=== PATIENT | female | born 1945 | race Caucasian/White ===

== ENCOUNTER 2020-06-11 10:03 | Outpatient (REF) | payer MEDICARE, SELFPAY ==
--- NOTE | 2020-06-11 10:12 | MM_ITS ---
EXAMINATION: MM SCREENING DIGITAL MAMMOGRAPHY, BILATERAL CLINICAL INFORMATION: Screening. Asymptomatic. The lifetime risk of breast cancer based on the Tyrer-Cuzick Model is under 2%. COMPARISON: Mammography: 06/03/2019, 05/12/2018 TECHNIQUE: Digital mammography is performed in craniocaudal and mediolateral oblique views along with computer-aided detection (CAD). FINDINGS: There are scattered areas of fibroglandular density (ACR BI-RADS breast composition Category b). There are no significant masses, abnormal calcifications, or other abnormalities. Parenchymal pattern is similar to prior exams. There are scattered bilateral round, rim, and dermal calcifications again seen in each breast. IMPRESSION: No significant changes from prior studies. ASSESSMENT: BI-RADS 2: Benign RECOMMENDATION: Routine annual mammography screening. This patient's information was entered into a reminder system with a target due date for their next mammogram.
== END 2020-06-11 10:04 | disposition home or self-care (01) ==
LOC: HO.MAMMO 10:03
PROVIDERS: PCP Family Medicine; Visit Provider Family Medicine
DX: Z12.31 Encounter for screening mammogram for malignant neoplasm of breast (principal)
CPT/HCPCS: 77067

== ENCOUNTER 2021-06-21 10:14 | Outpatient (REF) | payer MEDICARE, SELFPAY ==
--- NOTE | ~2021-06-21 | MM_ITS ---
EXAMINATION: BONE DENSITOMETRY CLINICAL INDICATION: Osteoporosis. COMPARISON: Baseline BD dated 01/07/2013. TECHNIQUE: Using a [employer] DXA System (software version: 13.1) manufactured by [employer], dual-energy x-ray absorptiometry was performed of the spine and left hip. The images are of good technical quality. Summary results are attached. FINDINGS: AP SPINE L1-L4: Current: BMD 1.492 g/cm2, Z-score 3.2, T-score 2.6, normal, 2.3% increase from baseline (<5% change is not significant). Baseline: BMD 1.459 g/cm2. LEFT FEMUR, NECK: Current: BMD 0.682 g/cm2, Z-score -1.4, T-score -2.6, osteoporosis. Baseline: BMD 0.934 g/cm2. LEFT FEMUR, TOTAL: Current: BMD 0.745 g/cm2, Z-score -1.2, T-score -2.1, osteopenia, 25.6% decrease from baseline (<5% change is not significant). Baseline: BMD 1.002 g/cm2. IDENTIFIED RISK FACTORS: Menopause, family history (parental hip fracture). HISTORY OF FRACTURE: None listed. MEDICATIONS: Vitamin D. MM/XR DEXA axial skeleton IMPRESSION: 1. DIAGNOSIS: Osteoporosis based on the lowest T-score value of -2.6 in the femoral neck applying World Health Organization criteria. 2. 10-YEAR FRACTURE RISK PREDICTION, FRAX: Major osteoporotic fracture (clinical spine, forearm, hip or shoulder) 25.6%. Hip fracture 15.5%. 3. Treatment Recommendations: NOF guidelines recommend consideration for treatment in postmenopausal women and men age 50 and older presenting with the following: -A hip or vertebral (clinical or morphometric) fracture. -T-score less than or equal to -2.5 at the femoral neck or spine after appropriate evaluation to exclude secondary causes. -Low bone mass at the hip or spine and a 10-year fracture probability by FRAX of greater than or equal to 3% for hip fracture or greater than or equal to 20% for major osteoporotic fracture based on the [place] adapted WHO algorithm. 4. Other Recommendations: All treatment decisions require clinical judgment and consideration of individual patient factors, including patient preferences, comorbidities, previous drug use, risk factors not captured in the FRAX model (e.g. frailty, falls, vitamin D deficiency, increased bone turnover, interval significant decline in bone density) and possible under or overestimation of fracture risk by FRAX. Additional medical evaluation for secondary cause of low bone mineral density may be appropriate. FUTURE SCAN RECOMMENDATION: People with diagnosed cases of osteoporosis or at high risk for fracture should have regular bone mineral density tests. For patients eligible for Medicare, routine testing is allowed once every 2 years. The testing frequency can be increased to one year for patients who have rapidly progressing disease, those who are receiving or discontinuing medical therapy to restore bone mass, or have additional risk factors.
--- NOTE | ~2021-06-21 | MM_ITS ---
EXAMINATION: MM SCREENING DIGITAL BREAST TOMOSYNTHESIS, BILATERAL CLINICAL INFORMATION: Screening. Asymptomatic. The lifetime risk of breast cancer based on the Tyrer-Cuzick Model is 3%. COMPARISON: Mammography: 06/11/2020, 06/03/2019, 05/12/2018 TECHNIQUE: Digital breast tomosynthesis is performed in both the craniocaudal and mediolateral oblique views along with computer-aided detection (CAD). Synthesized 2D images are generated from the tomosynthesis. Additional bilateral MLO views are provided. FINDINGS: There are scattered areas of fibroglandular density (ACR BI-RADS breast composition Category b). There are no significant masses, abnormal calcifications, or other abnormalities. There are scattered bilateral round, rim, and dermal calcifications again noted. No significant changes. MM/MM tomosynthesis screening BI IMPRESSION: No mammographic evidence of malignancy. ASSESSMENT: BI-RADS 2: Benign RECOMMENDATION: Routine annual mammography screening. This patient's information was entered into a reminder system with a target due date for their next mammogram.
== END 2021-06-21 10:15 | disposition home or self-care (01) ==
LOC: HO.MAMMO 10:14
PROVIDERS: Visit Provider Family Medicine
DX: Z12.31 Encounter for screening mammogram for malignant neoplasm of breast (principal); Z13.820 Encounter for screening for osteoporosis; Z78.0 Asymptomatic menopausal state
CPT/HCPCS: 77063; 77067; 77080

== ENCOUNTER 2022-06-24 10:59 | Outpatient (REF) | payer MEDICARE, SELFPAY ==
--- NOTE | ~2022-06-24 | MM_ITS ---
EXAMINATION: MM SCREENING DIGITAL BREAST TOMOSYNTHESIS, BILATERAL CLINICAL INFORMATION: Screening. Asymptomatic. The lifetime risk of breast cancer based on the Tyrer-Cuzick Model is 3%. COMPARISON: Mammography: 06/21/2021, 06/11/2020, 06/03/2019 TECHNIQUE: Digital breast tomosynthesis is performed in both the craniocaudal and mediolateral oblique views along with computer-aided detection (CAD). Synthesized 2D images are generated from the tomosynthesis. FINDINGS: There are scattered areas of fibroglandular density (ACR BI-RADS breast composition Category b). Parenchymal pattern is similar to prior studies. There is fibronodular pattern in the anterior breasts similar to previous exams. No developing density or interval mass or architectural abnormality. Again, there are scattered bilateral benign round and rim and dermal calcifications. The axilla are unremarkable. MM/MM tomosynthesis screening BI IMPRESSION: No mammographic evidence of malignancy. ASSESSMENT: BI-RADS 2: Benign RECOMMENDATION: Routine annual mammography screening. This patient's information was entered into a reminder system with a target due date for their next mammogram.
== END 2022-06-24 11:00 | disposition home or self-care (01) ==
LOC: HO.MAMMO 10:59
PROVIDERS: Visit Provider Family Medicine
DX: Z12.31 Encounter for screening mammogram for malignant neoplasm of breast (principal)
CPT/HCPCS: 77063; 77067

== ENCOUNTER 2023-07-10 08:13 | Outpatient (REF) | payer MEDICARE, SELFPAY | END 2023-07-10 08:14 | disposition home or self-care (01) | LOC: HO.MAMMO 08:13 | PROVIDERS: PCP Family Medicine; Visit Provider Family Medicine | DX: Z12.31 Encounter for screening mammogram for malignant neoplasm of breast (principal) | CPT/HCPCS: 77063; 77067 ==

== ENCOUNTER → 2023-07-10 08:45 | Outpatient (BNV) | payer MEDICARE, SELFPAY | PROVIDERS: PCP Family Medicine; Visit Provider Radiology Diagnostic Radiology | DX: Z12.31 Encounter for screening mammogram for malignant neoplasm of breast (principal) | CPT/HCPCS: 77063; 77067 ==

== ENCOUNTER 2025-09-06 12:35 | Outpatient (REF) | payer MEDICARE, SELFPAY ==
--- NOTE | ~2025-09-06 | MM_ITS ---
EXAMINATION: DXA BONE DENSITY AXIAL HISTORY: OSTEOPOROSIS TECHNIQUE: [employer] Dual energy absorptiometry (DEXA) of the lumbar spine, total left hip, and femoral neck was performed. COMPARISON: Comparison is made with the prior examination dated 06/21/2021. FINDINGS: The bone mineral density of the lumbar spine is 1.562 g/cm2, corresponding to a T-score of 3.2, and a Z-score of 3.8. This is indicative of normal bone mineral density. This represents a BMD change of 4.7% compared to the prior exam. This is statistically significant. The bone mineral density of the left total hip is 0.781 g/cm2, corresponding to a T-score of -1.8, and a Z-score of -0.7. This is indicative of osteopenia. This represents a BMD change of 4.8% compared to the prior exam. This is statistically significant. The bone mineral density of the left femoral neck is 0.756 g/cm2, corresponding to a T-score of -2.0, and a Z-score of -0.7. This is indicative of osteopenia. This represents a BMD change of 10.9% compared to the prior exam. FRACTURE RISK: The FRAX index suggests a ten year probability of major osteoporotic fracture of 23.3%, and of hip fracture 13.9%. MM/XR DEXA axial skeleton IMPRESSION: Based on bone mineral density, and according to World Health Organization (WHO) criteria, the diagnosis is consistent with osteopenia. Statistically, 68% of repeat scans fall within 1 SD (+/- 0.010 g/cm2 for AP spine L1-L4) and 1 SD (+/- 0.012 g/cm2 for femur total) FRAX is a trademark of the [employer] Met[employer], a World Health Organization (WHO) Collaborating Center. Electronically signed by: Victorino Villafuerte MD 09/06/2025 01:28 PM [facility]
--- OUTSIDE RECORDS SUMMARY | 2025-09-06 14:11 | XMS_ITS | Encounter Summary ---
Author Organization [facility] Address [address] [place] [address] [place] [address] Phone Care Team Providers Care Tissue Specialist Name Role Phone Abeba Ames MD Primary Care Provider Dilcia Patricia MD Unavailable Shantel Christensen RN Unavailable [phone] Reason for Referral * Consultation (Elective) - Closed Specialty Diagnoses / Procedures Referred By Contac t Referred To Contact Diagnoses Atrial fibrillation, unspecified type Abeba Ames MD [address] [place] [address] Phone: tel: fax: [email or web address] [address] [place] [address] Phone: tel: Referral ID Status Reason Start Date Expiration Date Visits Re quested Visits Authorized [id number] Closed 10/23/2022 10/23/2023 1 1 Encounter Details Date Type Department Care Team (Late st Contact Info) Description 10/23/[address] [facility] Department [address] [place] [address] Abeba mAes MD [address] [place], [place] [phone] [email or web address] Atrial fibrillation, unspecified type (Primary Dx) Social History Tobacco Use Types Packs/Day Years Used Date Smoking Tobacco: Never Smokeless Tobacco: Never Alcohol Use Standard Drinks/Week Comments Never 0 (1 standard drink = 0.6 oz pur e alcohol) occasinal its been a while Comments No Sex and Gender Information Value Date Recorded Sex Assigned at Not on file Legal Sex Female 10:07 PM EDT Gender Identity Not on file Sexual Orientation Not on file documented as of this encounter Plan of Treatment Upcoming Encounters Date Type Department Care Team (Late st Contact Info) Description 09/19/2025 10:00 AM EST Nurse Only [facility] [address] [place] [address] Abeba Ames MD [address] [place] [address] documented as of this encounter Procedures Procedure Name Priority Date/Time Associated Diagnosis Comments AMB REFERRAL TO [facility]TICO[facility]ULATION [facility] Routine 11/24/2022 8:52 AM EDT Atrial fibrillation, unspecified type documented in this encounter Results * Ambulatory referral to [facility] Anticoagulation [facility] (11/24/2022 8:52 AM EDT) Other Abeba Ames MD AMB [facility] REFERRALS Final Result documented in this encounter Visit Diagnoses Diagnosis Atrial fibrillation, unspecified type- Primary documented in this encounter Care Teams Tissue Specialist Relationship Specialty Start Date End Date Abeba Ames MD [address] [place] [address] PCP - General Family Medicine 07/23/17 Dilcia Patricia MD [address] [place] [address] Cardiology 09/15/23 Shantel Christensen RN [address] [place] [address] Registered Nurse 07/11/25 documented as of this encounter Additional Source Comments The information contained in this document represents components of the legal health record. It is not the complete legal health record.[facility]
--- OUTSIDE RECORDS SUMMARY | 2025-09-06 14:11 | XMS_ITS | Clinical Summary ---
Author Organization [facility] Address [address] [place] [address] Phone Care Team Providers Care Dairy Science Teacher Name Role Phone Abeba Ames MD Primary Care Provider Dilcia Patricia MD Unavailable [phone] Shantel Christensen RN Unavailable [phone] Allergies No known active allergies Medications levothyroxine (SYNTHROID, LEVOTHROID) 75 MCG tablet Take 75 mcg by mouth every morning. Active b complex vitamins capsule Take 1 capsule by mouth daily. Active acetaminophen (TYLENOL) 500 MG tablet Take 500 mg by mouth every 6 (six) hours as needed for pain (specific location in comments). Active cholecalciferol (VITAMIN D3) 4,000 unit tablet Take 1,000 Units by mouth daily. Active alendronate (FOSAMAX) 70 MG tablet Take 70 mg by mouth every 7 days. Take in the morning with a full glass of water, on an empty stomach, and do not take anything else by mouth or lie down for the next 30 min. Active sotaloL (BETAPACE) 80 MG tablet Take 80 mg by mouth 2 (two) times a day. Active warfarin (COUMADIN) 5 MG tablet Take 5 mg by mouth daily. Take 5mg daily Active Active Problems Problem Noted Date Diagnosed Date emt intermediate (current) use of anticoagulants 2024 Atrial fibrillation [I48.91] 07/04/2017 Chronic anticoagulation 07/04/2017 Encounters Date Type Department Care Team Description 08/15/2025 8:20 AM EST Nurse Only [facility] [address] [place] [address] Abeba Ames MD Atrial fibrillation [I48.91] (Primary Dx); Chronic anticoagulation; emt intermediate (current) use of anticoagulants 07/11/2025 8:20 AM EST Office Visit [facility] [address] [place] [address] Abeba Ames MD Atrial fibrillation [I48.91] (Primary Dx); Chronic anticoagulation 06/27/2025 8:00 AM EDT Office Visit [facility] [address] [place] [address] Abeba Ames MD Atrial fibrillation [I48.91] (Primary Dx); Chronic anticoagulation from Last 3 Months Social History Tobacco Use Types Packs/Day Years Used Date Smoking Tobacco: Never Smokeless Tobacco: Never Alcohol Use Standard Drinks/Week Comments Never 0 (1 standard drink = 0.6 oz pur e alcohol) occasinal its been a while Education Answer Date Recorded Are you interested in more education? Not on britton e 01/02/2023 Are you concerned about learning? Not on file 01/02/2023 No 01/02/2023 No 01/02/2023 Digital Access Answer Date Recorded No 01/31/2023 No 01/31/2023 No 01/31/2023 Reliable internet access at home? Not on file 01/31/2023 Device with a working camera? Not on file Comments No Sex and Gender Information Value Date Recorded Sex Assigned at Not on file Legal Sex Female 10:07 PM EDT Gender Identity Not on file Sexual Orientation Not on file Last Filed Vital Signs Vital Sign Reading Time Taken Comments Blood Pressure 113/60 02/21/2021 10:15 AM EDT Pulse 70 02/21/2021 10:10 AM EDT Temperature 36.2 C (97.2 F) 02/21/2021 8:00 AM EDT Respiratory Rate 21 02/21/2021 10:10 AM EDT Oxygen Saturation 97% 02/21/2021 10:15 AM EDT Inhaled Oxygen Concentration - - Weight 113.4 kg (250 lb) 02/21/2021 8:00 AM EDT Height 157.5 cm (5' 2 ) 02/21/2021 8:00 AM EDT Body Mass Index 45.73 02/21/2021 8:00 AM EDT Plan of Treatment Upcoming Encounters Date Type Department Care Team (Late st Contact Info) Description 09/19/2025 10:00 AM EST Nurse Only [facility] [address] [place] [address] Abeba Ames MD [address] [place] [address] [email or web address] Health Maintenance Due Date Last Done Comments LIPID PANEL 1946 TSH LEVEL 1946 DEPRESSION SCREENING 1958 HEPATITIS C SCREENING 1964 ZOSTER VACCINES (2 of 3) 02/20/2011 12/26/2010 OSTEOPOROSIS SCREENING INITIAL (ONE-TIME) 11/20/2011 RSV VACCINE (1 - 1-dose 75+ series) 2021 INFLUENZA VACCINE (#1) 2025 2, 06/19/2021, 06/25/2020, Additional history exists COVID-19 VACCINE (2024- season) 2025 Adult Td,Tdap Booster 06/25/2030 06/25/2020, 010 PNEUMOCOCCAL VACCINES (50+ years) Completed 11/06/2014, 02/23/2012 SMOKING STATUS SCREENING (Once After 26 Yrs) Completed 02/21/2021 HEPATITIS A VACCINES Aged Out No long er eligible based on patient's age to complete this topic HIB VACCINES Aged Out No longer eligi ble based on patient's age to complete this topic MENINGOCOCCAL VACCINES (ACWY) Aged Out No longer eligible based on patient's age to complete this topic MENINGOCOCCAL VACCINES (B) Aged Out N o longer eligible based on patient's age to complete this topic Medical Devices Not on file Procedures Procedure Name Priority Date/Time Associated Diagnosis Comments POCT INR Routine 08/15/2025 8:24 AM EST POCT PT/INR Routine 07/11/2025 8:23 AM EST Atrial fibrillation [I48.91] Chronic anticoagulation POCT INR Routine 07/11/2025 8:22 AM EST POCT INR Routine 06/27/2025 8:00 AM EDT from Last 3 Months Results * (ABNORMAL) POCT INR (08/15/2025 8:24 AM EST) Only the most recent of2 resultswithin the time period is included. INR 2.5(H) 0.9 - 1.1 08/15/2025 8:26 AM EST [facility] Blood (Blood) 08/15/2025 8:2 4 AM EST 08/15/2025 8:26 AM EST Abeba Ames MD LAB POCT DOCKED DEVICE UNSOLICTED RESULTS Final Result [address] [address] * POCT PT/INR (Enter/Edit) (07/11/2025 8:23 AM EST) POC PT-INR 2.9 07/11/2025 8:23 AM EST Amelia Cardoso [facility] LAB POCT ENTER/EDIT O RDERABLES Final Result * (ABNORMAL) Poct INR (06/27/2025 8:00 AM EDT) INR 3.4(H) 0.86 - 1.17 [facility] Comment:Therapeutic Range 2. 0-3.5 06/27/2025 8:00 AM EDT 06/27/2025 8:02 AM EDT Abeba Ames MD POINT OF CARE TEST ORDE RABLES Final Result Performing Organization Address City/[facility]/ZIP Co de Phone Number [facility] [address] [place] [address] from Last 3 Months Insurance [facility] MEDIC[facility] HMO BLUE REPLACEMENT MEDICARE PART A & B [facility] MEDIC[facility] HMO BLUE REPLACEMENT MEDICARE PART A & [place] [address] [place] [address] MEDICARE HMO BLUE REPLACEMENT [facility] MEDICARE HMO BLUE REPLACEMENT [facility] MEDIC[facility] HMO BLUE REPLACEMENT MEDICARE PART A & B [facility] MEDICARE O BLUE REPLACEMENT [facility] MEDICARE HMO BLUE REPLACEMENT MEDICARE PART A & B [place]UE RE[place]AC[place] MEDICARE PART A & B [facility] MEDICARE HMO BLUE REPLACEMENT MEDICARE PART A & B Care Teams Dairy Science Teacher Relationship Specialty Start Date End Date Abeba Ames MD [address] [place] [address] [email or web address] PCP - General Family Medicine 07/23/17 Dilcia Patricia MD [address] [place] [address] Cardiology 09/15/23 Shantel Christensen, RN [address] [place] [address] Registered Nurse 07/11/25 Additional Source Comments The information contained in this document represents components of the legal health record. It is not the complete legal health record.[facility]
--- OUTSIDE RECORDS SUMMARY | 2025-09-06 14:11 | XMS_ITS | Encounter Summary ---
Author Organization [facility] Address [address] [place] [address] [place] [address] Phone Care Team Providers Care Fluxer Name Role Phone Abeba Ames MD Primary Care Provider Dilcia Patricia MD Unavailable [phone] Shantel Christensen RN Unavailable [phone] Reason for Referral * Consultation (Routine) - Closed Specialty Diagnoses / Procedures Referred By Contac t Referred To Contact Diagnoses Atrial fibrillation Abeba Ames MD [address] [place] [address] Phone: tel: fax: [email or web address] [address] Phone: tel: Referral ID Status Reason Start Date Expiration Date Visits Re quested Visits Authorized [id number] Closed 11/21/2021 11/21/2022 1 1 Encounter Details Date Type Department Care Team (Latest Contact Info) Description 11/21/2021 Transcribe Orders [facility] [address] [place] [address] Shantel Christensen, RN [address] [place] [address] [email or web address] Atrial fibrillation (Primary Dx) Social History Tobacco Use Types [...] Description 09/19/2025 10:00 AM EST Nurse Only [facility] [address] [place] [address] Abeba Ames MD [address] [place] [address] documented as of this encounter Procedures Procedure Name Priority Date/Time Associated Diagnosis Comments AMB REFERRAL TO [facility] Routine 12/12/2021 10:21 AM EDT Atrial fibrillation documented in this encounter Results * Ambulatory referral to [facility] (12/12/2021 10:21 AM EDT) Other Abeba Ames MD AMB [facility] REFERRALS Final Result documented in this encounter Visit Diagnoses Diagnosis Atrial fibrillation- Primary documented in this encounter Care Teams Fluxer Relationship Specialty Start Date End Date Abeba Ames MD [address] [place] [address] PCP - General Family Medicine 07/23/17 Dilcia Patricia MD [address] [place] [address] Cardiology 09/15/23 Shantel Christensen RN [address] [place] [address] Registered Nurse 07/11/25 documented as of this encounter Additional Source Comments The information contained in this document represents components of the legal health record. It is not the complete legal health record.[facility]
--- OUTSIDE RECORDS SUMMARY | 2025-09-06 14:11 | XMS_ITS | Encounter Summary ---
Author Organization [facility] Address [address] [place] [address] [place] [address] Phone Care Team Providers Care Instructor Substitute Cosmetology Name Role Phone Abeba Ames MD Primary Care Provider Dilcia Patricia MD Unavailable [phone] Shantel Christensen RN Unavailable [phone] Reason for Referral * Consultation (Elective) - Closed Specialty Diagnoses / Procedures Referred By Contac t Referred To Contact Diagnoses Atrial fibrillation, unspecified type Abeba Ames MD [address] [place] [address] Phone: tel: fax: mailto:[email or web address] [address] [place] [address] Phone: tel: Referral ID Status Reason Start Date Expiration Date Visits Re quested Visits Authorized [id number] Closed 11/08/2020 11/08/2021 1 1 Encounter Details Date Type Department Care Team (Late st Contact Info) Description 11/08/2020 Transcribe Orders [address] [address] Abeba Ames MD [address] [place], [place] [id number] [email or web address] Atrial fibrillation, unspecified type (Primary Dx) Social History Tobacco Use Types Packs/Day Years Used Date Smoking Tobacco: Never Smokeless Tobacco: Never Alcohol Use Standard Drinks/Week Comments Yes 2 (1 standard drink = 0.6 oz pur e alcohol) monthly Comments Unknown Sex and Gender Information Value Date Recorded Sex Assigned at Not on file Legal Sex Female 10:07 PM EDT Gender Identity Not on file Sexual Orientation Not on file documented as of this encounter Plan of Treatment Upcoming Encounters Date Type Department Care Team (Late st Contact Info) Description 09/19/2025 10:00 AM EST Nurse Only [facility] [address] [place] [address] Abeba Ames MD [address] [place] [address] Scheduled Referrals Name Type Priority Associated Diagnoses Order Schedule Ambulatory referral to [facility] Outpatient Referral Routine Atrial fibrillation, unspecified type Ordered: 11/08/2020 documented as of this encounter Visit Diagnoses Diagnosis Atrial fibrillation, unspecified type- Primary documented in this encounter Care Teams Instructor Substitute Cosmetology Relationship Specialty Start Date End Date Abeba Ames MD [address] [place] [address] PCP - General Family Medicine 07/23/17 Dilcia Patricia MD [address] [place] [address] Cardiology 09/15/23 Shantel Christensen RN [address] [place] [address] Registered Nurse 07/11/25 documented as of this encounter Additional Source Comments The information contained in this document represents components of the legal health record. It is not the complete legal health record.[facility]
--- OUTSIDE RECORDS SUMMARY | 2025-09-06 14:11 | XMS_ITS | Encounter Summary ---
Author Organization [facility] Address [address] [place] [address] [place] [address] Phone Care Team Providers Care Employee Benefits Administrator Name Role Phone Abeba Ames MD Primary Care Provider Dilcia Patricia MD Unavailable [phone] Shantel Christensen RN Unavailable [phone] Reason for Referral * Consultation (Routine) - Closed Specialty Diagnoses / Procedures Referred By Contac t Referred To Contact Diagnoses Atrial fibrillation, unspecified type Abeba Ames MD Phone: tel: fax: mailto:[email or web address] [address] [address] Phone: tel: Referral ID Status Reason Start Date Expiration Date Visits Re quested Visits Authorized [id number] Closed 11/17/2017 11/17/2018 1 1 Encounter Details Date Type Department Care Team (Late st Contact Info) Description 11/17/2017 Transcribe Orders [facility] Department [address] [place] [address] Abeba Ames MD [address] [place] [address] [email or web address] Atrial fibrillation, unspecified type (Primary Dx) Social History Tobacco Use Types Packs/Day Years Used Date Smoking Tobacco: Never Assessed Comments Unknown Sex and Gender Information Value Date Recorded Sex Assigned at Not on file Legal Sex Female 10:07 PM EDT Gender Identity Not on file Sexual Orientation Not on file documented as of this encounter Plan of Treatment Upcoming Encounters Date Type Department Care Team (Late st Contact Info) Description 09/19/2025 10:00 AM EST Nurse Only [facility] [address] [place] [address] Abeba Ames MD [address] [place] [address] documented as of this encounter Procedures Procedure Name Priority Date/Time Associated Diagnosis Comments AMB REFERRAL TO [facility] Routine 12/09/2017 9:27 AM EDT Atrial fibrillation, unspecified type documented in this encounter Results * Ambulatory referral to [facility] (12/09/2017 9:27 AM EDT) Abeba Ames MD AMB [facility] REFERRALS Final Result documented in this encounter Visit Diagnoses Diagnosis Atrial fibrillation, unspecified type- Primary documented in this encounter Care Teams Employee Benefits Administrator Relationship Specialty Start Date End Date Abeba Ames MD [address] [place] [address] PCP - General Family Medicine 07/23/17 Dilcia Patricia MD [address] [place] [address] Cardiology 09/15/23 Shantel Christensen, RN [address] [place] [address] Registered Nurse 07/11/25 documented as of this encounter Additional Source Comments The information contained in this document represents components of the legal health record. It is not the complete legal health record.[facility]
--- OUTSIDE RECORDS SUMMARY | 2025-09-06 14:11 | XMS_ITS | Encounter Summary ---
Author Organization [facility] Address [address] [place] [address] [place] [address] Phone Care Team Providers Care Tank Erector Name Role Phone Abeba Ames MD Primary Care Provider Dilcia Patricia MD Unavailable [phone] Shantel Christensen RN Unavailable [phone] Reason for Referral * Consultation (Routine) - Closed Specialty Diagnoses / Procedures Referred By Contac t Referred To Contact Diagnoses Atrial fibrillation, unspecified type Abeba Ames MD Phone: tel: fax: [email or web address] [address] [address] Phone: tel: Referral ID Status Reason Start Date Expiration Date Visits Re quested Visits Authorized [id number] Closed 03/03/2018 03/03/2019 1 1 Encounter Details Date Type Department Care Team (Late st Contact Info) Description 03/03/2018 Transcribe Orders [facility] Department [address] [place] [id number] Abeba Ames MD [address] [place] [address] [email or web address] Atrial fibrillation, unspecified type (Primary Dx) [...] Description 09/19/2025 10:00 AM EST Nurse Only [facility] [address] [place] [address] Abeba Ames MD [address] [place] [address] Scheduled Referrals Name Type Priority Associated Diagnoses Order Schedule Ambulatory referral to [facility] Anticoagulation Clinic Outpatient Referral Routine Atrial fibrillation, unspecified type Ordered: 03/03/2018 documented as of this encounter Visit Diagnoses Diagnosis Atrial fibrillation, unspecified type- Primary documented in this encounter Care Teams Tank Erector Relationship Specialty Start Date End Date Abeba Ames MD [address] [place] [address] PCP - General Family Medicine 07/23/17 Dilcia Patricia MD [address] [place] [address] Cardiology 09/15/23 Shantel Christensen RN [address] [place] [address] Registered Nurse 07/11/25 documented as of this encounter Additional Source Comments The information contained in this document represents components of the legal health record. It is not the complete legal health record.[facility]
--- OUTSIDE RECORDS SUMMARY | 2025-09-06 14:11 | XMS_ITS | Encounter Summary ---
Author Organization [facility] Address [address] [place] [address] Phone Care Team Providers Care Assistant Education Director Name Role Phone Abeba Ames MD Primary Care Provider Dilcia Patricia MD Unavailable [phone] Shantel Christensen RN Unavailable Encounter Details Date Type Department Care Team (Late st Contact Info) Description 02/15/2021 Transcribe Orders Virtual Department [address] [place] [address] Donnell Chance MD [facility] [address] [place] [address] [email or web address] Atrial flutter, unspecified type (Primary Dx) Social History Tobacco [...] Encounters Date Type Department Care Team (Late Contact Info) Description 09/19/2025 10:00 AM EST Nurse Only [facility] [address] [place] [address] Abeba Ames MD [address] [place] [address] [email or web address] documented as of this encounter Results * CARDIOVERSION (02/21/2021 10:10 AM EDT) Anatomical Region Laterality Modality Ultrasound Narrative 02/21/2021 10:09 AM EDT Cardioversion UNIVERSAL PROTOCOL: Consent obtained: Yes Time out: Immediately prior to the procedure a time out was called A time out verifies correct patient, procedure, equipment, user support analyst and site/side marked as required. SEDATION: Patient sedated?: Yes Please see separate sedation documentation. PRE-PROCEDURE: Cardioversion basis: elective Elective indications: failure of anti-arrhythmic medications Pre-procedure rhythm: atrial fibrillation Electrodes: pads No internal ICD shock Electrodes placement: anterior-posterior ATTEMPT DETAILS: Number of attempts: 1 Attempt 1 mode: synchronous Attempt 1 waveform: monophasic Manual pressure applied?: No Attempt 1 shock (Joules): 200 Attempt 1 outcome: conversion to normal sinus rhythm POST-PROCEDURE: Post-procedure rhythm: normal sinus rhythm Complications: no complications Patient tolerance: Patient tolerated the procedure well with no immediate complications COMMENTS: Successful cardioversion with 1 shock to NSR. Donnell Chance MD [facility] Final Result documented in this encounter Visit Diagnoses Diagnosis Atrial flutter, unspecified type- Primary Atrial flutter, unspecified type documented in this encounter Care Teams Assistant Education Director Relationship Specialty Start Date End Date Abeba Ames MD [address] [place] [address] [email or web address] PCP - General Family Medicine 07/23/17 Dilcia Patricia MD [address] [place] [address] Cardiology 09/15/23 Shantel Christensen RN [address] [place] [address] Registered Nurse 07/11/25 documented as of this encounter Additional Source Comments The information contained in this document represents components of the legal health record. It is not the complete legal health record.[facility]
--- OUTSIDE RECORDS SUMMARY | 2025-09-06 14:11 | XMS_ITS | Encounter Summary ---
Author Organization [facility] Address [address] [place] [address] [place] [address] Phone Care Team Providers Care Smoking Tobacco Cutter Operator Name Role Phone Abeba Ames MD Primary Care Provider Dilcia Patricia MD Unavailable [phone] Shantel Christnesen RN Unavailable [phone] Reason for Referral * Consultation (Elective) - Closed Specialty Diagnoses / Procedures Referred By Contac t Referred To Contact Diagnoses Atrial fibrillation, unspecified type System, Provider Not In, PhD [address] [address] Phone: tel: Referral ID Status Reason Start Date Expiration Date Visits Re quested Visits Authorized [id number] Closed 10/22/2018 10/22/2019 1 1 Encounter Details Date Type Department Care Team (Late st Contact Info) Description 10/22/2018 Transcribe Orders Virtual Department [address] [place] [address] Abeba Ames MD [address] [place] [address] [email or web address] Atrial fibrillation, unspecified type (Primary Dx) [...] Description 09/19/2025 10:00 AM EST Nurse Only [facility] [address] [place] [address] Abeba Ames MD [address] [place] [address] [email or web address] Scheduled Referrals Name Type Priority Associated Diagnoses Order Schedule Ambulatory referral to [facility] An[facility] Clinic Outpatient Referral Routine Atrial fibrillation, unspecified type Ordered: 10/22/2018 documented as of this encounter Visit Diagnoses Diagnosis Atrial fibrillation, unspecified type- Primary documented in this encounter Care Teams Smoking Tobacco Cutter Operator Relationship Specialty Start Date End Date Abeba Ames MD [address] [place] [address] PCP - General Family Medicine 07/23/17 Dilica Patricia MD [address] [place] [address] Cardiology 09/15/23 Shantel Christensen RN [address] [place] [address] Registered Nurse 07/11/25 documented as of this encounter Additional Source Comments The information contained in this document represents components of the legal health record. It is not the complete legal health record.[facility]
--- OUTSIDE RECORDS SUMMARY | 2025-09-06 14:11 | XMS_ITS | Encounter Summary ---
Author Organization [facility] Address [address] [place] [address] [place] [address] Phone Care Team Providers Care Mold Changer Name Role Phone Abeba Ames MD Primary Care Provider Dilcia Patricia MD Unavailable [phone] Shantel Christensen RN Unavailable [phone] Encounter Details Date Type Department Care Team (Late st Contact Info) Description 02/15/2021 Procedure Pass [facility] [address] [place] [address] Social History Tobacco Use Types Packs/Day Years [...] Nurse Only [facility] [address] [place] [address] Abeba Ames MD [address] [place] [address] documented as of this encounter Visit Diagnoses Not on filedocumented in this encounter Care Teams Mold Changer Relationship Specialty Start Date End Date Abeba Ames MD [address] [place] [address] PCP - General Family Medicine 07/23/17 Dilcia Patricia MD [address] [place] [address] Cardiology 09/15/23 Shantel Christensen, RN [address] [place] [address] Registered Nurse 07/11/25 documented as of this encounter Additional Source Comments The information contained in this document represents components of the legal health record. It is not the complete legal health record.[facility]
== END 2025-09-06 12:36 | disposition home or self-care (01) ==
LOC: HO.MAMMO 12:35
PROVIDERS: PCP Family Medicine; Visit Provider Family Medicine
DX: Z12.31 Encounter for screening mammogram for malignant neoplasm of breast (principal); M81.0 Age-related osteoporosis without current pathological fracture
CPT/HCPCS: 77063; 77067; 77080

== ENCOUNTER → 2025-09-06 13:30 | Outpatient (BNV) | payer MEDICARE, SELFPAY | PROVIDERS: PCP Family Medicine; Visit Provider Radiology Diagnostic Radiology | DX: E28.39 Other primary ovarian failure (principal) | CPT/HCPCS: 77080 ==